=== PATIENT | male | born 1985 | race African-American/Black ===

== ENCOUNTER 2021-09-20 04:00 | Emergency (ER) | payer MEDICAID ==
[~2021-09-20] VITALS: Ht 182.9 cm; Wt 122.0 kg
[2021-09-20 06:11] LABS: BASOPHILS % 0.3 % (0.0-2.0); EOSINOPHILS % 0.1 % (0.0-5.0); HEMATOCRIT. 50.1 % (42.0-52.0); HEMOGLOBIN. 16.8 g/dL (14.0-18.0); LYMPHOCYTES % 13.6 % (20.0-50.0); MEAN CORPUSCULAR HEMOGLOBIN 27.4 pg (28.0-32.0); MEAN CORPUSCULAR VOLUME 81.7 fL (80.0-94.0); MEAN PLATELET VOLUME 8.8 fl (7.4-10.4); MONOCYTES % 7.1 % (2.0-8.0); NEUTROPHILS % 78.9 % (40.0-76.0); PLATELET 303 x1000/uL (130-400); RED BLOOD CELL COUNT 6.13 mill/uL (4.7-6.1); RED CELL DISTRIBUTION WIDTH 14.4 % (11.6-14.6)
[2021-09-20 06:18] LABS: CHLORIDE 109 mEq/L (98-107)
[2021-09-20 07:41] VITALS: BP 129/68
== END 2021-09-20 07:43 | disposition left against medical advice (07) ==
LOC: ER 04:00
DX: J45.909 Unspecified asthma, uncomplicated (principal); Z20.822 Contact with and (suspected) exposure to COVID-19; F20.9 Schizophrenia, unspecified; R11.0 Nausea; R51.9 Headache, unspecified; Z98.890 Other specified postprocedural states
CPT/HCPCS: 36415; 71045; 80053; 83880; 84484; 85025; 93005; 99285

== ENCOUNTER 2023-12-05 13:52 | Emergency (ER) | payer MEDICAID ==
[~2023-12-05] VITALS: Ht 177.8 cm; Wt 137.0 kg
[2023-12-05 14:05] VITALS: O2SAT 97
[2023-12-05] MEDS: KETOROLAC 30MG/ML VIAL IM ONE (14:31)
[2023-12-05] MEDS: ACETAMINOPHEN 500MG TABLET PO ONE (14:31)
[2023-12-05 15:47] VITALS: BP 131/84; PULSE 87; RESP 18; TEMP 98.2
== END 2023-12-05 16:31 | disposition home or self-care (01) ==
LOC: ER 13:52
DX: G89.29 Other chronic pain (principal); M54.50 Low back pain, unspecified; J45.909 Unspecified asthma, uncomplicated; Z86.59 Personal history of other mental and behavioral disorders
CPT/HCPCS: 99283; 96372; J1885